=== PATIENT | female | born 2000 | race African-American/Black ===

== ENCOUNTER 2020-12-08 21:47 | Emergency (ER) | payer SELFPAY ==
[~2020-12-08] VITALS: Ht 167.6 cm; Wt 54.0 kg
[2020-12-08 21:51] VITALS: BP 110/70
[2020-12-08] MEDS ORDERED: ACET-2708 MT (22:27)
[2020-12-08] MEDS ORDERED: ACETAMINOPHEN 325MG TABLET PO ONE (22:30)
== END 2020-12-08 22:40 | disposition home or self-care (01) ==
LOC: ER 22:27
DX: R51.9 Headache, unspecified (principal); J45.909 Unspecified asthma, uncomplicated
CPT/HCPCS: 99283